=== PATIENT | female | born 1980 | race Caucasian/White ===

== ENCOUNTER 2018-02-09 18:50 | Emergency (ER) | payer MEDICAID ==
[~2018-02-09] VITALS: Ht 152.4 cm; Wt 43.1 kg
[2018-02-09 18:57] VITALS: BP_SYST 110
[2018-02-09 19:48] LABS: BASOPHILS % (AUTO) 0.4 % (0.0-2.0); EOSINOPHILS # (AUTO) 0.4 K/uL (0.0-0.4); EOSINOPHILS % (AUTO) 7.3 % (0.0-4.0); HEMATOCRIT 37.4 % (36-48); HEMOGLOBIN 12.9 g/dL (12.0-16.0); LYMPHOCYTES # (AUTO) 1.5 K/uL (1.0-5.5); LYMPHOCYTES % (AUTO) 25.5 % (20.5-51.5); MEAN CORPUSCULAR HEMOGLOBIN 34 pg (27-31); MEAN CORPUSCULAR HGB CONC 35 % (32-36); MEAN CORPUSCULAR VOLUME 99 fL (79.0-98.0); MONOCYTES # (AUTO) 0.5 K/uL (0.0-1.0); MONOCYTES % (AUTO) 7.8 % (1.7-9.3); NEUTROPHILS # (AUTO) 3.6 K/uL (1.8-7.7); PLATELET COUNT (AUTO) 237 K/uL (130-430); RED BLOOD CELL COUNT(AUTO) 3.77 MIL/uL (4.2-6.2); RED CELL DISTRIBUTION WIDTH 12.9 % (9.0-15.0)
[2018-02-09 19:52] LABS: CALCIUM 9.3 mg/dL (8.4-11.0); CREATININE 0.84 mg/dL (0.55-1.30); POTASSIUM 3.6 mmol/L (3.5-5.1)
[2018-02-09 20:01] LABS: ALBUMIN 3.7 g/dL (3.4-4.8); TOTAL BILIRUBIN 0.3 mg/dL (0.0-1.0)
[2018-02-09] MEDS ORDERED: NACL 0.9% 1,000 ML IV ONE (20:32)
[2018-02-09 20:41] LABS: BILIRUBIN,URINE NEGATIVE (NEGATIVE); BLOOD, URINE 2+ (NEGATIVE); CLARITY/URINE CLEAR (CLEAR); COLOR,URINE YELLOW (YELLOW); GLUCOSE,URINE NEGATIVE (NEGATIVE); KETONES,URINE NEGATIVE (NEGATIVE); LEUKOCYTE ESTERASE ,URINE NEGATIVE (NEGATIVE); NITRITE, URINE NEGATIVE (NEGATIVE); PROTEIN URINE NEGATIVE (NEGATIVE); UROBILINOGEN,URINE 0.2 (0.2-1.0)
[2018-02-09 21:00] LABS: PROTHROMBIN TIME 10.1 SECS (9.5-12.5)
[2018-02-09 21:11] LABS: BACTERIA,URINE FEW /HPF (None Seen); MUCUS,URINE None Seen /LPF (None Seen); WBC,URINE 0-3 /HPF (0-3)
[2018-02-09] MEDS ORDERED: IBUPROFEN 600 MG TABLET PO ONE (23:30)
[2018-02-09 23:43] VITALS: BP_SYST 118
== END 2018-02-09 23:43 | disposition home or self-care (01) ==
LOC: SED 18:50
DX: R53.1 Weakness (principal); N92.1 Excessive and frequent menstruation with irregular cycle; R03.0 Elevated blood-pressure reading, without diagnosis of hypertension; F41.9 Anxiety disorder, unspecified
CPT/HCPCS: 36415; 76830; 76857; 80053; 81000; 84702; 85025; 85610; 85730; 99284; J7030

== ENCOUNTER 2021-12-25 00:01 | Emergency (ER) | payer MEDICAID ==
[~2021-12-25] VITALS: Ht 152.4 cm; Wt 59.0 kg
[2021-12-25 00:06] VITALS: BP_SYST 106
--- NOTE | 2021-12-25 00:10 | NUR ---
PT HERE C/O ABD PAIN ALONG WITH VOMITING ALL DAY TODAY. PT DENIES DIARRHEA, DENIES DYSURIA. PMH;DENIES PT AAOX4, NO SOB NOTED AND NAD.
--- NOTE | 2021-12-25 00:25 | NUR ---
ER MD Gallegos at bedside.
[2021-12-25] MEDS ORDERED: NACL 0.9% 1,000 ML IV ONE (00:30)
[2021-12-25] MEDS ORDERED: ONDANSETRON HCL 4 MG/2 ML VIAL IVP ONE (00:30)
[2021-12-25] MEDS ORDERED: HALOPERIDOL LACTATE 5 MG/ML VIAL IVP ONE (00:45)
--- NOTE | 2021-12-25 00:49 | NUR ---
Patient presents to ED from home with c/o N/V s/p ETOH consumption. Patient reports pain 0/10 at this time. Patient states "This always happens to me when I drink too much. I've been feeling really nauseous since this morning at 9 am, I've thrown up a couple of times." Patient vomited once while in room. Patient's significant other at bedside. Nad noted at this time.
--- NOTE | 2021-12-25 01:00 | NUR ---
# 22 gauge angiocath placed to left AC. Use of asceptic technique. Opsite placed over site. Blood return noted. Flushed with 10 cc of normal saline. No evidence of infiltration noted. Patient tolerated well.
[2021-12-25 01:32] LABS: BASOPHILS % (AUTO) 0.2 % (0.0-2.0); EOSINOPHILS # (AUTO) 0.1 K/uL (0.0-0.4); EOSINOPHILS % (AUTO) 0.6 % (0.0-4.0); HEMATOCRIT 38.7 % (36-48); HEMOGLOBIN 13.4 g/dL (12.0-16.0); LYMPHOCYTES # (AUTO) 0.6 K/uL (1.0-5.5); LYMPHOCYTES % (AUTO) 6.7 % (20.5-51.5); MEAN CORPUSCULAR HEMOGLOBIN 33 pg (27-31); MEAN CORPUSCULAR HGB CONC 35 % (32-36); MEAN CORPUSCULAR VOLUME 97 fL (79.0-98.0); MONOCYTES # (AUTO) 0.6 K/uL (0.0-1.0); MONOCYTES % (AUTO) 5.9 % (1.7-9.3); NEUTROPHILS # (AUTO) 8.2 K/uL (1.8-7.7); NEUTROPHILS % (AUTO) 86.6 % (40.0-70.0); PLATELET COUNT (AUTO) 243 K/uL (130-430); RED BLOOD CELL COUNT(AUTO) 3.99 MIL/uL (4.2-6.2); RED CELL DISTRIBUTION WIDTH 13.5 % (9.0-15.0); WHITE BLOOD COUNT (AUTO) 9.5 K/uL (4.8-10.8)
[2021-12-25 01:48] LABS: BILIRUBIN,URINE 1+ (NEGATIVE); BLOOD, URINE NEGATIVE (NEGATIVE); CLARITY/URINE CLEAR (CLEAR); COLOR,URINE YELLOW (YELLOW); GLUCOSE,URINE NEGATIVE (NEGATIVE); KETONES,URINE 3+ (NEGATIVE); LEUKOCYTE ESTERASE ,URINE NEGATIVE (NEGATIVE); NITRITE, URINE NEGATIVE (NEGATIVE); PROTEIN URINE 2+ (NEGATIVE); UROBILINOGEN,URINE 0.2 (0.2-1.0)
[2021-12-25 02:18] LABS: RBC,URINE 0-3 /HPF (0-3); URINE SULFO SALICYLIC ACID NEGATIVE (NEGATIVE)
[2021-12-25 02:19] LABS: BACTERIA,URINE FEW /HPF (None Seen); MUCUS,URINE None Seen /LPF (None Seen)
--- NOTE | 2021-12-25 02:21 | NUR ---
Patient resting comfortably in bed with side rails raised. Patient's significant other at bedside. Nad noted at this time.
[2021-12-25 03:29] LABS: CALCIUM 8.4 mg/dL (8.4-11.0); CREATININE 0.89 mg/dL (0.55-1.30); POTASSIUM 3.3 mmol/L (3.5-5.1)
[2021-12-25 03:33] LABS: TOTAL BILIRUBIN 0.4 mg/dL (0.0-1.0)
[2021-12-25] MEDS ORDERED: ONDA-8 TL (03:39)
[2021-12-25] MEDS ORDERED: CEPH-548 PO (03:39)
[2021-12-25 03:52] VITALS: BP_SYST 106
--- NOTE | 2021-12-25 03:52 | NUR ---
Patient given written and verbal discharge instructions and verbalizes understanding. ER MD discussed with patient the results and treatment provided. Patient in stable condition. ID arm band removed. IV catheter removed intact and dressing applied, no active bleeding. Rx of CEPHALEXIN AND ZOFRAN given. Patient educated on pain management and to follow up with PMD. Pain Scale 0/10. Opportunity for questions provided and answered. Medication side effect fact sheet provided. PATIENT IN STABLE CONDITION UPON DISCHARGE
== END 2021-12-25 03:52 | disposition home or self-care (01) ==
LOC: SED 00:01
DX: N39.0 Urinary tract infection, site not specified (principal); R11.10 Vomiting, unspecified; R10.9 Unspecified abdominal pain; F12.90 Cannabis use, unspecified, uncomplicated; Z79.899 Other long term (current) drug therapy
CPT/HCPCS: 99283; 96374; 96361; 80053; 81000; 83690; 85025; 36415; 81025; J2405; J7030

== ENCOUNTER 2022-07-11 15:43 | Emergency (ER) | payer MEDICAID ==
[~2022-07-11] VITALS: Ht 152.4 cm; Wt 45.4 kg
[~2022-07-11 15:43] MED LIST: CEPH-548 PO; ONDA-8 TL
[2022-07-11] MEDS ORDERED: HALOPERIDOL LACTATE 5 MG/ML VIAL IM ONE (16:15)
[2022-07-11 16:23] VITALS: BP_SYST 105
[2022-07-11 16:50] LABS: BASOPHILS % (AUTO) 0.1 % (0.0-2.0); EOSINOPHILS % (AUTO) 0.1 % (0.0-4.0); HEMATOCRIT 39.9 % (36-48); HEMOGLOBIN 13.3 g/dL (12.0-16.0); LYMPHOCYTES # (AUTO) 0.7 K/uL (1.0-5.5); LYMPHOCYTES % (AUTO) 3.5 % (20.5-51.5); MEAN CORPUSCULAR HEMOGLOBIN 32 pg (27-31); MEAN CORPUSCULAR HGB CONC 33 % (32-36); MEAN CORPUSCULAR VOLUME 97 fL (79.0-98.0); MONOCYTES # (AUTO) 1.5 K/uL (0.0-1.0); MONOCYTES % (AUTO) 7.7 % (1.7-9.3); NEUTROPHILS # (AUTO) 17.4 K/uL (1.8-7.7); NEUTROPHILS % (AUTO) 88.6 % (40.0-70.0); PLATELET COUNT (AUTO) 293 K/uL (130-430); RED BLOOD CELL COUNT(AUTO) 4.12 MIL/uL (4.2-6.2); RED CELL DISTRIBUTION WIDTH 13.7 % (9.0-15.0); WHITE BLOOD COUNT (AUTO) 19.7 K/uL (4.8-10.8)
[2022-07-11 17:04] LABS: ACETONE, SERUM NEGATIVE (NEGATIVE)
[2022-07-11 17:07] LABS: ALANINE AMINOTRANSFERASE 23 U/L (12-78); ALBUMIN 2.8 g/dL (3.4-4.8); AMYLASE 37 U/L (0-100); ANION GAP 10 (5-15); ASPARTATE AMINOTRANSFERASE 17 U/L (10-37); CALCIUM 8.8 mg/dL (8.4-11.0); CHLORIDE 94 mmol/L (98-107); CREATININE 0.98 mg/dL (0.55-1.30); GFR AFRICAN AMERICAN 80 mL/min (>90); GLUCOSE 102 mg/dL (70-99); LIPASE 57 U/L (73-393); TOTAL BILIRUBIN 0.6 mg/dL (0.0-1.0); UREA NITROGEN, BLOOD 8 mg/dL (8-21)
--- NOTE | 2022-07-11 17:12 | NUR ---
Pt brought by self, A&Ox4, pt presents to ER with persistent N/V weakness, pt states she feels dehydrated, skin pink and warm, cap refill <3,VSS
[2022-07-11] MEDS ORDERED: ONDA-8 TL (17:27)
[2022-07-11] MEDS ORDERED: ALBMDI INH (17:27)
[2022-07-11] MEDS ORDERED: LEVO-62 PO (17:27)
[2022-07-11] MEDS ORDERED: NACL 0.9% 2,000 ML IV ONE (17:30)
--- NOTE | 2022-07-11 17:30 | NUR ---
Dr Small evaluating patient at bedside
[2022-07-11 17:33] LABS: C-REACTIVE PROTEIN QUANT 41.1 mg/dL (0-0.5)
--- NOTE | 2022-07-11 17:40 | NUR ---
# 20 gauge angiocath placed to LAC. Use of asceptic technique. Opsite placed over site. Blood return noted. Blood for lab drawn from site. Flushed with 10 cc of normal saline. No evidence of infiltration noted. Patient tolerated well.
--- NOTE | 2022-07-11 17:41 | NUR ---
Pt started on antibiotics. pt tolerated iv placement well. Pt in bed with siderails up. pt verbalized understanding of treatment.
[2022-07-11 18:37] LABS: BILIRUBIN,URINE NEGATIVE (NEGATIVE); BLOOD, URINE 1+ (NEGATIVE); CLARITY/URINE CLEAR (CLEAR); COLOR,URINE YELLOW (YELLOW); GLUCOSE,URINE NEGATIVE (NEGATIVE); KETONES,URINE 2+ (NEGATIVE); LEUKOCYTE ESTERASE ,URINE 1+ (NEGATIVE); NITRITE, URINE NEGATIVE (NEGATIVE); PH,URINE 6.5 (5.0-8.0); PROTEIN URINE NEGATIVE (NEGATIVE); UROBILINOGEN,URINE 0.2 (0.2-1.0)
[2022-07-11 18:44] LABS: BACTERIA,URINE FEW /HPF (None Seen); MUCUS,URINE 2+ /LPF (None Seen)
--- NOTE | 2022-07-11 19:49 | NUR ---
Patient given written and verbal discharge instructions and verbalizes understanding. ER MD discussed with patient the results and treatment provided. Patient in stable condition. ID arm band removed. Rx of Ventolin ,Levaquin and Zofran given. Patient educated on pain management and to follow up with PMD. Pain Scale 0/10. Opportunity for questions provided and answered. Medication side effect fact sheet provided.
[2022-07-11 19:50] VITALS: BP_SYST 105
== END 2022-07-11 19:50 | disposition home or self-care (01) ==
LOC: SED 15:43
DX: J18.9 Pneumonia, unspecified organism (principal); R11.10 Vomiting, unspecified; R42 Dizziness and giddiness; R10.13 Epigastric pain; F12.90 Cannabis use, unspecified, uncomplicated; F17.200 Nicotine dependence, unspecified, uncomplicated; Z79.899 Other long term (current) drug therapy
CPT/HCPCS: 99285; 70450; 96365; 71045; 96366; 80053; 81000; 82009; 82150; 84703; 83690; 85025; 86140; 84484; 36415; 93005; 76376; 74176; 96372; 83605; J1630; J1956